=== PATIENT | female | born 1965 | race American Indian/Alaskan Native ===

== ENCOUNTER 2017-05-22 09:03 | Outpatient (CLI) | payer BC ==
--- NOTE | 2017-05-23 10:35 | Mammography Report ---
BILATERAL DIGITAL SCREENING MAMMOGRAM with CAD : 05/22/17 09:03:00 CLINICAL: Routine screening. COMPARISON:05/15/16 and 05/24/14 FINDINGS: The breasts are heterogeneously dense, which may obscure small masses.Stable scattered left upper outer calcifications with benign morphology. No mass, architectural distortion or suspicious calcifications. IMPRESSION: No mammographic evidence of malignancy. BI-RADS CATEGORY: 2 -- Benign RECOMMENDATION: Routine mammographic screening in one year. COMMENT: Patient follow-up letters are generated by our [employer] application.
== END 2017-05-22 09:04 | disposition home or self-care (01) ==
LOC: SPVWC 09:03
PROVIDERS: ATTEND Internal Medicine
DX: Z12.31 Encounter for screening mammogram for malignant neoplasm of breast (principal)
CPT/HCPCS: 77067; G0202

== ENCOUNTER 2017-08-07 13:00 | Outpatient (CLI) | payer BC ==
--- NOTE | 2017-08-08 09:59 | Ultrasound Report ---
Pelvic ultrasound: Pelvic pain with uterine enlargement. Endovaginal and transabdominal imaging demonstrates an anteverted uterus measuring approximately 6.8 x 11.3 x 14.7 cm. The myometrium is generally inhomogeneous. There are 2 exophytic hypodense masses in the fundus each measuring approximately 7.8 cm. A myometrial intrauterine mass is noted in the fundus measuring 3.9 cm. In the lower uterine segment there is a 2.8 cm mass. There are diffuse uterine calcifications. The endometrial thickness is 9 mm and the endometrium appears smooth and closed. The right ovary is identified on the transabdominal images measuring approximately 3 cm in size. A small amount of surrounding fluid. The left ovary is not identified. Impression: Enlarged uterus with diffuse calcifications and multiple fibroids as described above. Nonvisualized left ovary.
--- NOTE | 2017-08-08 10:12 | Ultrasound Report ---
Thyroid ultrasound: Goiter. The right lobe measures 16 x 16 x 46 mm. It is generally homogeneous with a few small scattered cysts. No solid or suspicious findings. The left lobe measures 18 x 22 x 47 mm. In the inferior third there is a relatively circumscribed markedly inhomogeneous mass containing both solid and cystic components as well as diffuse microcalcifications. It measures approximately 12 x 20 x 22 mm in size. There is some internal vascularity in the solid component. Just inferior to this lesion is a smaller circumscribed mass measuring 8.2 mm. It is also inhomogeneous with both solid and cystic components with some scattered microcalcifications. Questionable internal vascularity. Impression: Indeterminant inferior left lobe mass having some suspicious characteristics. Recommendation: Ultrasound guided biopsy.
== END 2017-08-07 13:01 | disposition home or self-care (01) ==
LOC: SPVWC 13:00
PROVIDERS: ATTEND Obstetrics & Gynecology Gynecology
DX: D25.9 Leiomyoma of uterus, unspecified (principal); E04.1 Nontoxic single thyroid nodule; N85.2 Hypertrophy of uterus; N85.8 Other specified noninflammatory disorders of uterus
CPT/HCPCS: 76536; 76830; 76856

== ENCOUNTER 2017-08-19 11:24 | Day surgery (SDC) | payer BC ==
[2017-08-19 11:57] VITALS: BP 167/99
--- NOTE | 2017-08-19 13:27 | Short Stay Summary ---
Short Stay Documentation Date of service: 08/19/17 - History Principal diagnosis: left thyroid nodule H&P: obtained from office - Allergies and Medications Current Medications: Allergies No Known Allergies Allergy (Unverified 08/19/17 11:24) Home Medications Medication Instructions Recorded Confirmed Last Taken Type Carvedilol [Coreg] 6.25 mg PO BID 08/19/17 08/19/17 08/19/17 History 6.25mg Folic Acid [Folvite] 1 mg PO DAILY 08/19/17 08/19/17 08/19/17 History 1mg Meloxicam 7.5 mg PO QHS 08/19/17 08/19/17 08/18/17 History 7.5mg Methotrexate(Dose Weekly Only) 2.5 mg PO 1XW 08/19/17 08/19/17 08/16/17 History 2.5mg Travoprost [Travatan Z 0.004%] 2 drops OU QHS 08/19/17 08/19/17 08/18/17 History 2 predniSONE [Deltasone] 5 mg PO QHS 08/19/17 08/19/17 08/18/17 History 5mg - Physical exam General appearance: no acute distress HEENT: Atraumatic, Mucous membr. moist/pink, Other (slight left thyroid prominence) - Brief post op/procedure progress note Date of procedure: 08/19/17 Pre-op diagnosis: left thyroid nodule Post-op diagnosis: same Procedure: US thyroid biopsy Anesthesia: local Findings: 2-3cm left thyroid nodule Surgeon: SHREYA MCCOY Estimated blood loss: none Pathology: list (FNA, rotex biopsy) Specimen disposition: to lab Condition: stable - Disposition Condition at discharge: Good Disposition: [id number] TO HOME OR SELFCARE Short Stay Discharge Plan Follow up with: NANNETTE LOWE MD [Primary Care Provider] - 7 Days
--- NOTE | 2017-08-19 14:16 | Ultrasound Report ---
ULTRASOUND BIOPSY THYROID History: Left thyroid nodule Description of procedure: Informed consent was obtained. Sterile technique was utilized. 1% lidocaine for skin anesthesia. Using ultrasound guidance, fine needle aspiration and Rotex biopsy was performed on a 1.9 x 1.1 cm partially cystic nodule in the inferior left thyroid lobe. The samples were deemed adequate by the pathologist on site. No complications. Impression: Successful ultrasound-guided biopsy of a left thyroid nodule as described.
== END 2017-08-19 13:55 | disposition home or self-care (01) ==
LOC: CATHLABREC 11:24 → EDSTATUS 12:00 → CATHLABREC 13:55
PROVIDERS: ATTEND Obstetrics & Gynecology Gynecology
DX: E04.1 Nontoxic single thyroid nodule (principal)
CPT/HCPCS: 60100; 76942; 88112; 88172; 88173; 88305

== ENCOUNTER 2019-05-10 07:12 | Outpatient (CLI) | payer BC ==
--- NOTE | 2019-05-10 16:26 | Mammography Report ---
DIGITAL SCREENING MAMMOGRAM WITH CAD, 05/10/2019 INDICATION: Routine screening mammography. TECHNIQUE: Digital bilateral 2D mammography was obtained in the craniocaudal and mediolateral obliq ue projections. This examination was interpreted with the benefit of Computer-Aided Detection analysi s. COMPARISON: 05/24/2014 FINDINGS: Breast Density: The breasts are heterogeneously dense, which may obscure small masses. New left calcifications requiring additional imaging. No architectural distortion or mass of the left breast. There is no evidence of dominant mass, suspicious calcifications or architectural distortion in the right breast. IMPRESSION: New left calcifications requiring additional imaging. Recommend recall for left ML and ML and CC magnification views. Follow up recommendation: Special View: Mag Category 0: Incomplete. Needs additional imaging evaluation and/or prior mammograms for comparison. A "normal" or negative report should not discourage follow up or biopsy of a clinically significant f inding. A written summary of these findings will be mailed to the patient. The patient will be entered into a mammography reporting system which will generate a reminder letter for the patient's next appointmen t at the appropriate interval. The [employer] recommends yearly mammograms starting at age 40 and continuing as l tosha as a woman is in good health. Breast MRI is recommended for women with an approximate 20-25% or greater lifetime risk of breast cancer, including women with a strong family history of breast or ova uyen cancer or who have been treated for Hodgkin's disease. Signer Name: Donnie Elizondo MD Signed: 05/10/2019 4:21 PM Workstation Name: [id number]
== END 2019-05-10 07:13 | disposition home or self-care (01) ==
LOC: MAMMO 07:12
PROVIDERS: ATTEND Internal Medicine
DX: Z12.31 Encounter for screening mammogram for malignant neoplasm of breast (principal)
CPT/HCPCS: 77067

== ENCOUNTER 2019-06-16 09:30 | Outpatient (CLI) | payer BC ==
--- NOTE | 2019-06-16 12:33 | Mammography Report ---
DIGITAL DIAGNOSTIC MAMMOGRAM WITH CAD, 06/16/2019 INDICATION: Recall to evaluate calcifications. R92.8 TECHNIQUE: Digital left mammographic imaging was performed. Magnification views were obtained. This examination was interpreted with the benefit of Computer-aided Detection analysis. COMPARISON: 05/10/2019 screening mammogram FINDINGS: Breast Density: The breasts are heterogeneously dense, which may obscure small masses. ML and CC spot magnification views demonstrate several groups of calcifications with irregular forms. 3 groups on t he ML spots have similar morphology. At least some of these calcifications appear to overlap on CC vi ews. A couple of other groups of calcifications have benign morphology. No associated mass or archite ctural distortion. IMPRESSION: Probably benign calcifications. Recommend 6 month follow-up left diagnostic mammogram wit h repeat magnification views. Follow up recommendation: Short term follow up in 6 months. BI-RADS Category 3: Probably Benign. Followup in 6 months. A "normal" or negative report should not discourage follow up or biopsy of a clinically significant f inding. A written summary of these findings will be mailed to the patient. The patient will be entered into a mammography reporting system which will generate a reminder letter for the patient's next appointmen t at the appropriate interval. According to the [employer], yearly mammograms are recommended starting at age 40 and continuing as long as a woman is in good health. Breast MRI is recommended for women with an enoc roximately 20-25% or greater lifetime risk of breast cancer, including women with a strong family his tory of breast or ovarian cancer and women who have been treated for Hodgkin's disease. Signer Name: Donnie Elizondo MD Signed: 06/16/2019 12:28 PM Workstation Name: [id number]
== END 2019-06-16 09:31 | disposition home or self-care (01) ==
LOC: MAMMO 09:30
PROVIDERS: ATTEND Internal Medicine
DX: R92.8 Other abnormal and inconclusive findings on diagnostic imaging of breast (principal)

== ENCOUNTER 2020-12-12 11:02 | Outpatient (CLI) | payer BC ==
--- NOTE | 2020-12-12 13:44 | Mammography Report ---
BILATERAL DIGITAL SCREENING MAMMOGRAM WITH CAD HISTORY: Screening mammogram. TECHNIQUE: Routine digital mammographic imaging performed. This examination was interpreted with rogelio hudson benefit of Computer-aided Detection analysis. COMPARISON: 06/16/2018, 05/10/2019. FINDINGS: Breast Density: heterogeneously dense breast parenchymal pattern which somewhat lessens the sensitivi ty of the evaluation. Digital CC and MLO views demonstrate persistent groupings of calcifications in the left superior betty st. These were previously evaluated on the 06/16/2019 exam and repeat magnification views of these mario cifications was recommended at that time. No new suspicious findings are identified within either gregg ast. IMPRESSION: Stable mammographic appearance without evidence of new suspicious finding. However, the patient has persistent groupings of calcifications within the left superior breast. These were previously evaluat ed on the 06/14/2019 exam and repeat magnification views was recommended at that time. It is recommend ed the patient return for left breast magnification views. BIRADS 0-Incomplete: Needs additional imaging evaluation NOTE: WE WILL RECALL THE PATIENT FOR THIS ADDITIONAL EVALUATION. FURTHER INFORMATION: According to the [employer], yearly mammograms are recommend ed starting at age 40 and continuing as long as a woman is in good health. Clinical Breast Exams shou ld be part of a periodic health exam-about every 3 years for women in their 20s and 30s and every yea r for women 40 and over. Breast self exam is an option for women starting in their 20s. Any breast ch junior noted on a breast self exam should be reported promptly to the patient's healthcare provider. Br east MRI is recommended for women with an approximately 20-25% or greater lifetime risk of breast can cer, including women with a strong family history of breast or ovarian cancer and women who have been treated for Hodgkin's disease. A negative Mammography report should not discourage follow up or biopsy of a clinically significant f inding and/or abnormality. Dense breast tissue may obscure small neoplasms. The patient will be entered into a reminder system with a target due date for the next screening mamm ogram. Signer Name: Sascha Blood MD Signed: 12/12/2020 1:40 PM Workstation Name: [id number]
--- NOTE | 2020-12-12 13:47 | Mammography Report ---
DEXA BONE DENSITY SCAN INDICATION: OSTEOPENIA OF MULTIPLE SITES/OSTEOPOROSIS SCREENING. COMPARISON: None available. DEFINITIONS: BMD = Bone Mineral Density T-score = BMD related to mean peak bone mass of a young child (mean expressed in standard deviation) Z-score = age matched BMD is expressed in SD World Health Organization (WHO) diagnostic criteria Normal T score > -1 SD Osteopenia T score between -1 and -2.4 SD Osteoporosis T score -2.5 SD or below. LUMBAR SPINE (L1-L4): Bone mineral density (BMD) is 1.036 g/cm2. T-score is -1 (standard deviations of Young Adult mean). Z-score is 0.3 (standard deviations of Age Matched mean). LEFT FEMORAL NECK: Bone mineral density (BMD) is 0.848 g/cm2. T-score is -1.2 (standard deviations of Young Adult mean). Z-score is -0.6 (standard deviations of Age Matched mean). IMPRESSION: 1. WHO Classification: Osteopenia. Fracture Risk: Increased. Signer Name: Sascha Blood MD Signed: 12/12/2020 1:43 PM Workstation Name: [id number]
== END 2020-12-12 11:03 | disposition home or self-care (01) ==
LOC: SPVWC 11:02
PROVIDERS: ATTEND Internal Medicine
DX: Z12.31 Encounter for screening mammogram for malignant neoplasm of breast (principal); M85.89 Other specified disorders of bone density and structure, multiple sites
CPT/HCPCS: 77067; 77080